=== PATIENT | female | born 1980 | race Hispanic/Latino ===

== ENCOUNTER 2018-08-09 17:56 | Emergency (ER) | payer BC, OTHER ==
[2018-08-09 17:59] VITALS: BMI 35.7
[2018-08-09 18:22] VITALS: BP 126/80; PULSE 98; RESP 18; TEMP 98.6; O2SAT 98
--- NOTE | 2018-08-09 21:26 | ED PDOC ---
Arrival/HPI - General Chief Complaint: Lower Extremity Problem/Injury Time Seen by Provider: 08/09/18 18:08 Historian: Patient - History of Present Illness Narrative History of Present Illness (Text): 08/09/18 21:51 38-year-old female presents today with right knee pain and right anterior tib/fib pain. Patient states 3 days ago she tripped and fell injuring the right knee. Patient states initially she was not having any pain and then about an hour after the fall she developed severe pain in the anterior aspect of the knee radiating into the tib-fib. Patient denies numbness weakness or tingling in the extremity. Patient states she took Motrin at home for pain with minimal improvement. Patient states pain is worse with range of motion of the knee. No other complaints Past Medical History - Provider Review Nursing Documentation Reviewed: Yes - Travel History Have you recently traveled outside [place] w/in the past 3 mons?: No - Infectious Disease Hx of Infectious Diseases: None - Tetanus Immunization Tetanus Immunization: Unknown - Reproductive Menopause: No - Psychiatric Hx Substance Use: No - Surgical History Hx Section: Yes - Anesthesia Hx Anesthesia: No Hx Anesthesia Reactions: No Family/Social History - Physician Review Nursing Documentation Reviewed: Yes Family/Social History: Unknown Family HX Smoking Status: Never Smoked Hx Alcohol Use: No Hx Substance Use: No Allergies/Home Meds Allergies/Adverse Reactions: Allergies No Known Allergies Allergy (Verified 06/30/17 12:22) Review of Systems - Review of Systems Constitutional: absent: Fatigue, Fevers Respiratory: absent: SOB, Cough Cardiovascular: absent: Chest Pain, Palpitations Gastrointestinal: absent: Abdominal Pain, Constipation, Diarrhea, Nausea, Vomiting Musculoskeletal: Arthralgias. absent: Back Pain, Neck Pain Skin: absent: Rash, Pruritis Neurological: absent: Headache, Dizziness Psychiatric: absent: Anxiety, Depression Physical Exam Vital Signs Reviewed: Yes Vital Signs Temp Pulse Resp BP Pulse Ox 08/09/18 18:18 98.6 F 98 H 18 126/80 98 Temperature: Afebrile Blood Pressure: Normal Pulse: Regular Respiratory Rate: Normal Appearance: Positive for: Well-Appearing, Non-Toxic, Comfortable Pain Distress: None Mental Status: Positive for: Alert and Oriented X 3 - Systems Exam Head: Present: Atraumatic Mouth: Present: Moist Mucous Membranes Neck: Present: Normal Range of Motion Respiratory/Chest: Present: Clear to Auscultation Cardiovascular: Present: Regular Rate and Rhythm Lower Extremity: Present: Tenderness (right knee; + ttp over the anterior aspect of the knee and in the inferior aspect of knee. + ttp over proximal tib/fib; + ecchymosis; limited flexion/extension of knee with pain. no calf tenderness. ), Swelling, Neurovascularly Intact, Capillary Refill < 2 s. No: CALF TENDERNESS, Normal ROM, Erythema Neurological: Present: GCS=15, Speech Normal, Motor Func Grossly Intact, Normal Sensory Function Skin: Present: Warm, Dry Psychiatric: Present: Alert, Oriented x 3 Medical Decision Making ED Course and Treatment: 08/09/18 21:25 Patient nontoxic well-appearing in no distress with stable vital signs X-rays of the knee: No fracture Toradol IM Patient placed in knee immobilizer Crutches given for ambulation Duplex of the lower extremity reveals no DVT verbal report from ecologist technician I discussed all results with patient advised to followup with the orthopedist for the next 2 days. Return if symptoms worsen persist or new symptoms develop patient states she wants to use Dr. Jolley is her orthopedist Patient verbalizes understanding of discharge instructions and need for immediate followup. All aspects of this case were discussed the attending of record. Impression: knee pain Motrin every 6 hours as needed for pain tramadol; 1 tablet every 8 hours as needed for moderate to severe pain; may cause drowsiness. Rest, ice, compression, elevation Use crutches for ambulation Followup with the orthopedist within the next 2 days Followup with primary care physician within the next 2 days Return if symptoms worsen persist or if new symptoms develop - RAD Interpretation Radiology Orders: 08/09/18 19:29 KNEE W PATELLA RIGHT 3 VIEW [RAD] Stat TIBIA FIBULA RIGHT [RAD] Stat DUPLEX LOWER EXTRM VEIN RIGHT [US] Stat - Medication Orders Current Medication Orders: Discontinued Medications Ketorolac Tromethamine (Toradol) 60 mg IM STAT STA Stop: 08/09/18 19:30 Disposition/Present on Arrival - Present on Arrival Any Indicators Present on Arrival: No History of DVT/PE: No History of Uncontrolled Diabetes: No Urinary Catheter: No History of Decub. Ulcer: No History Surgical Site Infection Following: None - Disposition Have Diagnosis and Disposition been Completed?: Yes Diagnosis: Knee pain, Leg pain Disposition: HOME/ ROUTINE Disposition Time: 20:50 Patient Plan: Discharge Patient Problems: Current Active Problems Problem Status Onset Knee pain Acute Leg pain Acute Condition: GOOD Discharge Instructions (ExitCare): Muscle and Bone Pain (DC), Knee Pain (DC) Additional Instructions: Motrin every 6 hours as needed for pain tramadol; 1 tablet every 8 hours as needed for moderate to severe pain; may cause drowsiness. Rest, ice, compression, elevation Use crutches for ambulation Followup with the orthopedist within the next 2 days Followup with primary care physician within the next 2 days Return if symptoms worsen persist or if new symptoms develop Prescriptions: Ibuprofen [Motrin] 600 mg PO Q6H PRN #20 tab PRN Reason: pain/fever reduction traMADol [Ultram] 50 mg PO Q6H PRN #6 tab PRN Reason: moderate to severe pain Referrals: Bean Price APN [Primary Care Provider] - Follow up with primary Luis Tejada MD [Staff Provider] - Follow up with primary Forms: [employer] ([place]ian), WORK NOTE
--- NOTE | 2018-08-10 09:51 | RAD ---
Date of service: 08/09/2018 PROCEDURE: Right Knee Radiographs. HISTORY: knee pain COMPARISON: None. FINDINGS: BONES: Normal. No fracture. JOINTS: Normal. No osteoarthritis. JOINT EFFUSION: None. OTHER FINDINGS: None. IMPRESSION: Normal radiographs of the right knee.
--- NOTE | 2018-08-10 09:52 | RAD ---
Date of service: 08/09/2018 PROCEDURE: Radiographs of the right tibia and fibula. HISTORY: pain/swelling s/p injury COMPARISON: None available TECHNIQUE: Frontal and lateral views obtained. FINDINGS: BONES: No fracture or destructive lesion. JOINT SPACES: Unremarkable. OTHER FINDINGS: None. IMPRESSION: Unremarkable radiographs of the right tibia and fibula.
--- NOTE | 2018-08-10 12:09 | US ---
PROCEDURE: Right lower extremity venous US HISTORY: Leg pain and swelling. Evaluate for DVT. PHYSICIAN(S): Trae Littlejohn M.D. TECHNIQUE: Duplex sonography and color-flow Doppler with graded compression were used to evaluate the deep venous system of the right lower extremity. FINDINGS: The exam is limited by body habitus and edema. The visualized deep venous system of the right lower extremity is sonographically normal and compressible. Normal waveforms and augmentation are seen. There is no sonographic evidence for deep venous thrombosis in the visualized segments of the right lower extremity. IMPRESSION: 1. No sonographic evidence for deep venous thrombosis in the visualized segments of the right lower extremity.
== END 2018-08-09 21:20 | disposition home or self-care (01) ==
LOC: ED 17:56
DX: M25.561 Pain in right knee (principal); M79.604 Pain in right leg
CPT/HCPCS: 73562; 73590; 81025; 93971; 96372; 99284; J1885

== ENCOUNTER 2018-08-16 07:39 | Outpatient (CLI) | payer OTHER | END 2018-08-16 07:40 | disposition home or self-care (01) | LOC: RAD 07:39 ==